=== PATIENT | male | born 1970 | race Asian ===

== ENCOUNTER → 2023-12-25 10:03 | Outpatient (REF) | payer BC, SELFPAY | LOC: DHCBC HW 10:03 | PROVIDERS: ATTENDING PHYSICIAN Internal Medicine; FAMILY PHYSICIAN Family Medicine | DX: I25.10 Atherosclerotic heart disease of native coronary artery without angina pectoris (principal); R07.89 Other chest pain; Z95.5 Presence of coronary angioplasty implant and graft | CPT/HCPCS: 93320 ==

== ENCOUNTER → 2024-12-15 08:48 | Outpatient (REF) | payer BC, SELFPAY | LOC: HWCARD 08:48 | PROVIDERS: ATTENDING PHYSICIAN Internal Medicine Hematology & Oncology; FAMILY PHYSICIAN Family Medicine | DX: C92.10 Chronic myeloid leukemia, BCR/ABL-positive, not having achieved remission (principal) | CPT/HCPCS: 93005 ==

== ENCOUNTER 2025-07-08 14:00 | Inpatient (IN) | payer BC, SELFPAY ==
[2025-07-06 19:20] VITALS: BP 126/83
[2025-07-06 19:45] LABS: Hematocrit 48.7 % (39.0-52.0); Hemoglobin 16.5 g/dL (13.0-18.0); Mean Corp Hgb Conc. 33.9 g/dL (33.0-37.0); Mean Corpuscular Volume 84.0 fL (80.0-94.0); Nucleated Red Blood Cells % 0 % (-); Platelet Count 224 10^3/uL (130-400); Red Cell Dist. Width 15.1 % (11.5-14.5)
[2025-07-06 20:09] LABS: ALT (SGPT) 20 U/L (0-50); AST (SGOT) 18 U/L (17-59); Albumin 4.6 g/dl (3.5-5.0); Alkaline Phosphatase 76 U/L (38-126); Blood Urea Nitrogen 13 mg/dl (9-20); Calcium 9.5 mg/dl (8.4-10.2); Carbon Dioxide 29 mmol/L (22-30); Chloride 101 mmol/L (98-107); Glucose 112 mg/dl (70-99); Potassium 4.5 mmol/L (3.5-5.1); Sodium 137 mmol/L (135-145); Total Protein 7.8 g/dl (6.3-8.2); eGFR > 60.00
[2025-07-06 20:19] LABS: Troponin I < 0.012 ng/ml
[2025-07-06 20:54] VITALS: BP 120/84
[2025-07-06 21:00] VITALS: BP 122/83
[2025-07-06 22:00] VITALS: BP 126/88
--- NOTE | 2025-07-06 22:50 | ED.GENMED ---
History of Present Illness
General
Chief Complaint: Chest Pain
Source: patient and spouse
Exam Limitations: none
Time Seen by Provider: 07/06/25 20:51
History of Present Illness
History of Present Illness:
Note:
CHIEF COMPLAINT(S)
Chest pain.
HISTORY OF PRESENT ILLNESS
The patient is a 54-year-old male with a history of hypertension, diabetes, previous cardiac events requiring a bypass, and leukemia. The patient presents with chest pain that started yesterday. The pain is described as a tight sensation located in
the center of the chest, and it waxes and wanes throughout the day. The discomfort increases with activities such as walking, bending, and sitting down, although the pain is not completely gone at rest. The patient reports no associated difficulty
breathing or leg swelling. He has recently been experiencing chest pain while taking a hot shower, which led his bi manager to schedule a nuclear stress test for the following Sunday. The patient denies any new symptoms since the last
consultation with the bi manager.
Additional historian
Spouse states that patient has had a long history of coronary disease
PAST MEDICAL AND SURGICAL HISTORY
Patient has a history of hypertension, diabetes, and coronary artery disease, for which he underwent a bypass surgery in 2021 or 2022. He also has a history of leukemia.
CHRONIC MEDICAL CONDITIONS SIGNIFICANTLY AFFECTING CARE
Hypertension, diabetes, coronary artery disease, leukemia.
MEDICATIONS
The patient is currently taking Aspirin 81 mg, Metoprolol tartrate 50 mg twice daily, isosorbide mononitrate, Ozempic, and Jardiance. He mentioned he was taking a statin previously, but discontinued use three months ago due to interactions with
leukemia medications. He also reported plans to start Repatha tomorrow.
REVIEW OF SYSTEMS
- Cardiovascular: Chest pain described as tightness, waxing and waning throughout the day, worse with activity.
- Respiratory: No difficulty breathing reported.
- Musculoskeletal: No leg swelling reported.
PHYSICAL EXAM
General: Alert, no acute distress.
Skin: Warm, dry.
Head: Normocephalic, atraumatic.
Neck: Supple, trachea midline.
Eyes, ears, nose, mouth and throat: Oral mucosa moist.
Cardiovascular: Normal peripheral perfusion, no edema.
Respiratory: Respirations are non-labored.
Gastrointestinal: Abdomen nondistended.
Back: Normal range of motion, normal alignment.
Musculoskeletal: Normal range of motion, normal strength.
Neurological: Alert and oriented to person, place, time, and situation, no focal neurological deficit observed.
Psychiatric: Cooperative, appropriate mood & affect.
PROBLEM LIST
Acute problems:
- Chest pain
Chronic problems:
- Hypertension
- Diabetes
- Coronary artery disease
- Leukemia
PLAN
The plan includes reviewing the patients troponin levels and consulting with cardiology regarding the next steps, given the waxing and waning nature of the chest pain and its similarity to previous events. The cardiology team may decide to admit the
patient overnight for observation and potentially expedite the stress test or proceed with a catheterization. The patient is advised to communicate if the pain worsens.
DIFFERENTIAL DIAGNOSIS
The differential diagnosis includes, in no particular order and is not limited to:
1. Angina pectoris
2. Myocardial infarction
3. Gastroesophageal reflux disease
4. Costochondritis
5. Pulmonary embolism
6. Aortic dissection
7. Pericarditis
8. Anxiety or panic attack
9. Esophageal spasm
10. Hypertensive emergency
EKG
My independent EKG interpretation is:
- Rhythm: Normal sinus rhythm
- T-Wave Abnormalities: Anterior lateral T-wave inversions
- Prominence: Lateral T-wave inversions more prominent than prior
- [place]: Normal
- Intervals: Otherwise normal
Disposition:
SUMMARY OF ENCOUNTER
The patient is a 54-year-old male with a history of coronary artery disease and prior coronary artery bypass grafting (CABG), who presented to the emergency department with intermittent chest pain. These symptoms led to a consultation with
cardiology for an upcoming stress test. On initial evaluation in the emergency department, the patient was asymptomatic and the initial troponin was negative. However, given the patients risk factors and symptom history, the case was discussed with
Dr. Betancur from cardiology. Based on the consultation, a decision was made to admit the patient for close monitoring with a repeat troponin test and further evaluation by cardiology the following day. Additional interventions such as cardiac
catheterization may be considered. The patient is instructed to remain NPO after midnight.
DISPOSITION
Admit
MANAGEMENT OF THE PATIENTS CARE WAS DISCUSSED WITH
Dr. Betancur of cardiology, regarding the patients symptomatic history and risk factors, leading to the decision to admit for close monitoring and further evaluation.
INDEPENDENT REVIEW OF LABS AND INTERPRETATION OF TESTS
My independent review of troponin is negative on initial test.
PLAN
- Admit the patient for observation and further evaluation.
- Monitor with a repeat troponin test.
- [employer] Floor [employer] Placing Supervisor evaluation in the morning, with potential for cardiac catheterization.
- Keep patient NPO after midnight.
- Consider heparin administration if repeat troponin levels increase.
MEDICAL DECISION MAKING
- Chronic conditions affecting care: Hypertension, diabetes, coronary artery disease, leukemia. Differential diagnosis includes angina pectoris, myocardial infarction, gastroesophageal reflux disease, costochondritis, pulmonary embolism, aortic
dissection, pericarditis, anxiety or panic attack, esophageal spasm, hypertensive emergency.
- Data:
Category 2
My independent interpretation of EKG: Normal sinus rhythm with anterior lateral T-wave inversions, more prominent lateral T-wave inversions than prior, suggesting ongoing cardiac ischemia risk.
Category 3
Discussion of management with Dr. Betancur, bi manager, for decision-making on admission and further cardiac evaluation.
-Risk:
The decision to admit was influenced by the patients risk factors for significant cardiac events. Admission allows for comprehensive monitoring and way intervention if his condition changes, which may include advanced diagnostic testing or
therapeutic procedures to manage potential complications effectively.
DIAGNOSIS
- Chest pain, unspecified (ICD-10: R07.9)
- Coronary artery disease (ICD-10: I25.10)
Past History
Past History
ED Past Medical History: CAD, Hypercholesterolemia and Other (Leukemia)
ED Past Surgical History: Cardiac
Patient has exhibited threatening behavior?: No
PSI?: No
Phy Exam
Physical Exam
Physical Exam:
.
Scores
Heart Score for Chest Pain Patients
STEMI patient?: No
History: Moderately Suspicious
ECG: Nonspecific Repolarization
Age: >45 - <65 years
Risk Factors: >/= 3 Risk Factors or History of CAD
Troponin: </= Normal Limit
Heart Score for Chest Pain Patients: 5
Heart Score Risk: 20.3% MACE over next 6 weeks
Course
Orders/Labs/Results
Orders:
Orders
07/06/25 19:15
Electrocardiogram (*1) Urgent
Reason for Study: Chest Pain
EKG- Treatment ONCE
07/06/25 19:27
Complete Blood Count/With Diff Urgent
Comprehensive Metabolic Panel Urgent
Troponin I Urgent
07/06/25 21:50
CR Chest - 2 Views Urgent
Comment:
Reason For Exam: cp
07/06/25 22:47
Electrocardiogram (*1) Urgent
Reason for Study: Chest Pain
EKG- Treatment ONCE
07/06/25 22:53
Troponin I Urgent
07/06/25 23:36
Aspirin Chewable [Low Strength Aspirin] 243 mg PO NOW STA
07/07/25 00:26
Admit/Transfer Patient As Directed
Co-Sign Provider:
Level of Care: Observation services
Assign to:: Telemetry
Physician / Group: Rafita
Diagnosis: Chest pain
Reason for Telemetry: Chest Pain syndromes
Date to Stop Telemetry: 07/09/25
Time to Stop Telemetry: 11:00
PRN Pain Medication Management As Directed
May give lesser potent ordered pain med per pt: Yes
preference::
Protocol:: Medication orders for pain may be administered in a
manner that supports deferring to patient preference
when the pt is:
- Requesting an ordered lesser potent pain medication.
Least to most potent pain medications are defined
as: acetaminophen < NSAID < tramadol < opioids
(morphine, oxycodone, hydromorphone).
- Requesting a lesser dose of the same medication IF
ORDERED.
- Requesting a less intrusive route of administration
if both routes are prescribed by the provider (PO <
IV).
07/07/25 00:28
Code Status As Directed
Resuscitation Status: Full Code
07/09/25 11:00
DC Protocol for Telemetry ONCE
Abnormal Lab Results
07/06/25
19:27
RDW 15.1 H %
(11.5-14.5)
MPV 10.7 H fL
(7.4-10.4)
Abs Immat Gran (auto) 0.1 H 10^3/uL
(0-0.05)
Absolute Monos (auto) 0.7 H 10^3/uL
(0.1-0.6)
Glucose 112 H mg/dl
(70-99)
07/06/25 19:27
07/06/25 19:27
Vital Signs
Initial and Last Documented VS:
Initial Vital Signs
Temp Pulse Resp BP Pulse Ox
97.5 F 90 18 126/83 98
07/06/25 19:20 07/06/25 19:20 07/06/25 19:20 07/06/25 19:20 07/06/25 19:20
Last Documented Vital Signs
Temp Pulse Resp BP Pulse Ox
97.5 F 78 15 139/92 97
07/06/25 19:20 07/06/25 23:35 07/06/25 23:35 07/06/25 23:35 07/06/25 22:50
*Pulse Oximetry
SaO2: 97
Oxygen Mode of Delivery: Room air
Patient hypoxic: no
*Critical Care Note
Total Time (30-74mins, 75-104mins- exclusive of procedures): Not Applicable
ED Attending Note
-
Portions of this chart may have been created with voice recognition software.� Occasional wrong word or��sound alike� substitutions may have occurred due to the inherent limitations of voice recognition software.
Discharge Plan
Departure
Patient Disposition: Admit
Date of Disposition: 07/06/25
Time of Disposition: 23:29
Admit to: Telemetry
Presentation/result/management discussed w/ accepting MD/DO: Hospitalist
Discharge Problem:
Chest pain
Interventions
Interventions:
*Risk Screen - Suicide Last Done: 07/06/25 19:20
*General Assessment Last Done: 07/06/25 20:51
*Neglect/Abuse Screening Last Done: 07/06/25 19:20
*ED- Fall Risk Assessment Last Done: 07/06/25 20:51
*ED COVID-19 Vaccine History Last Done: 07/06/25 20:51
*ED Influenza Vaccine History Last Done: 07/06/25 20:51
ED- Cardiac Assessment Last Done: 07/06/25 23:25
[2025-07-06 23:33] LABS: Troponin I < 0.012 ng/ml
[2025-07-06 23:35] VITALS: BP 139/92
[2025-07-06] MEDS: LOW STRENGTH ASPIRIN 243 MG PO (23:50)
[2025-07-07] VITALS (17 sets, daily range): BP systolic 92–133; BP diastolic 70–91; BMI 30.1
--- NOTE | 2025-07-07 00:31 | HPS.HSE ---
Family Physician
-
Family Physician: Ever Mcclure
Chief Complaint
-
Chest Pain
History of Present Illness
Patient is a 54y with PMH significant for ASCVD, CML and DM-II who presents to ED complaining of chest pain. Patient states that he started with substernal chest pain yesterday AM. He notes that his pain was relatively mild and intermittent.
This AM his pain was more severe and was constant throughout the day. Patient noted associated headache and some R jaw discomfort with the pain. No associated SOB, diaphoresis, N/V. Patient notes that his symptoms are worse with any exertion /
activity and then improve with rest. He states that these symptoms are similar to his symptoms in 2020 prior to his CABG / stents.
At the time of my examination, patient states that his symptoms are much improved at rest. He reports minimal residual chest discomfort.
Patient notes that he stopped taking his statin about 3 months ago. He was having increased myalgias due to interaction between statin and his new CML medication (Scemblix).
Medical History
Past Medical History
Past Medical History: Reports Other
Additional Past Medical History:
ASCVD
CML
DM-II
Past Surgical History: Reports Other
Additional Past Surgical History:
CABG x 1 (SMITH - LAD) - 08/2022
PTCA with Stent x 2 (Cx / RPDA) - 09/2022
Vasectomy
Social History
Tobacco: Non-smoker
Alcohol: None
Drug: None
Family History
Family History: Not pertinent
Allergies / Home Medications
Allergies reflects when Allergies were last updated in [facility].
Home Medications with original date entered in [facility]
Allergy/Medication List:
Allergies
Allergy/AdvReac Type Severity Reaction Status Date / Time
No Known Allergies Allergy Verified 07/06/25 19:20
Home Medications
aspirin 81 mg chewable tablet 81 mg PO DAILY Blood clot prevention/tx 08/04/22
nitroglycerin 0.4 mg sublingual tablet 0.4 mg sublingual [id number] PRN chest pain #25 tabs 08/04/22
acetaminophen 325 mg tablet 650 mg (2 x 325 mg) PO Q6HPRN PRN mild pain,headache,temp >101F #0 tabs 08/24/22
metoprolol tartrate 50 mg tablet 50 mg PO BID #60 tabs 08/24/22
Scemblix 2 tab PO HS 07/06/25
empagliflozin 10 mg tablet (Jardiance) 10 mg PO DAILY 07/06/25
evolocumab 140 mg/mL subcutaneous syringe (Repatha Syringe) 140 mg SC Q2W 07/06/25
isosorbide mononitrate 30 mg tablet,extended release 24 hr 30 mg PO DAILY 07/06/25
metformin 500 mg tablet,extended release 24 hr 500 mg PO DAILY 07/06/25
semaglutide 1 mg/dose (2 mg/1.5 mL) subcutaneous pen injector 1 mg SC QWEEK 07/06/25
Review of Systems
-
History Source: Patient
A 12 point ROS was completed and negative except as noted: Yes
Constitutional: Denies Fever or Chills
Respiratory: Reports Trouble Breathing; Denies Cough
Cardiac: Reports Chest Pain; Denies Diaphoresis, Palpitations or Syncope
Abdomen/GI: Denies Abdominal Pain, Nausea, Vomiting or Diarrhea
: Denies Dysuria or Frequency
Musculoskeletal: Denies Joint Pain or Edema
Neurological: Reports Headache; Denies Dizzy
Psych: Denies Depression or Anxiety
Physical Exam
Vital Signs
Vital Signs
Temp Pulse Resp BP Pulse Ox
97.5 F 78 15 139/92 97
07/06/25 19:20 07/06/25 23:35 07/06/25 23:35 07/06/25 23:35 07/06/25 22:50
Physical Exam
General: Other (54y M in no acute distress.)
HEENT: Moist mucous membranes and PERRLA
Respiratory: Clear; No Wheezes, Rales or Rhonchi
Cardiac: S1/S2 and Regular Rhythm; No Murmur
GI: Soft, Non Tender, Non Distended and Normal Bowel Sounds
Musculoskeletal: No Clubbing, No Cyanosis and No Edema
Neuro: AO x 3
Laboratory Results
-
07/06/25 19:27
07/06/25 19:
Laboratory Results
Total Bilirubin 1.1 mg/dl (0.2-1.3) 07/06/25 19:
AST 18 U/L (17-59) 07/06/25 19:
ALT 20 U/L (0-50) 07/06/25 19:27
Alkaline Phosphatase 76 U/L (38-126) 07/06/25 19:
Troponin I < 0.012 ng/ml 07/06/25 22:53
Impression/Plan
-
A/P: Patient is a 54y M with PMH significant for ASCVD who presents to ED complaining of chest pain x 2 days.
Chest Pain
ASCVD
- Observe overnight for further evaluation and treatment.
- Good story for anginal pain. EKG with new T wav changes V2 - V6 compared to prior tracing.
- Despite this, troponin has been undetectable x 2 sets thus far.
- Continue current CV med regimen including ASA, metoprolol, etc.
- Follow for any new / worsening symptoms.
- Follow serial troponin for changes.
- Cardiology evaluation for additional recommendations.
DM-II
- Induced by CML medication per patient.
- Hold metformin acutely. Continue Jardiance.
- Follow glucose and cover with SSI as needed.
- Update A1C.
CML
- Stable. Cell counts are stable.
- Hold asciminib acutely (associated with cardiotoxicity).
DVT Prophylaxis: Lovenox
Code Status: Full
--- NOTE | 2025-07-07 02:30 | PTCARENOTE ---
Pt arrived to unit via stretcher. A&Ox3. Ambulated from stretcher to bed. Oriented to unit. Plan of care ongoing.
[2025-07-07 03:53] LABS: Troponin I < 0.012 ng/ml
[2025-07-07 06:02] LABS: Glucose - Point of Care 99 mg/dl (70-99)
--- NOTE | 2025-07-07 07:39 | CON.CAR ---
Addendum entered and electronically signed by Silvio Betancur MD 07/07/25 14:01:
I saw and evaluated the patient, and I provided the substantive portion of the medical decision making.
I reviewed and agree with the note by Ms Frost and it accurately reflects our care.
I personally performed the medical decision making of the this encounter and my assessment and plan is below:
Symptoms concerning for accelerating angina
- [facility] today
Original Note:
Consultation
Consultation Request
Date/Time Consultation Requested: 07/07/2025 01:00
Date/Time Consultation Performed: 07/07/2025 07:40
Requesting Provider: Dr. Eller
Performing Provider: JENNIE Garcia for Dr. Betancur
Reason for Consultation: Chest pain
Medical History
-
Chief Complaint: Chest pain
History of Present Illness:
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 He has been having waxing
and waning chest pain for the past 48 hours. He has both typical and atypical features. Typical features include worsening chest pressure that is midsternal and anterior that gets worse with exertion. Atypical feature includes worsening chest
pressure bending down. His chest pain is very brief and will last a few minutes and spontaneously resolved. He will also have some discomfort at rest. No episodes >5 minutes. He is currently chest pain-free.
Past Medical History
Past Medical History: CAD, Cancer (CML), HTN, Hypercholesterolemia and NIDDM
Past Surgical History: Cardiac (CABG)
Social History
Tobacco: Non-Smoker
Alcohol: None
Personal:
Family History
Family History: Reviewed & Not Pertinent
Allergies / Home Medications
Allergy/AdvReac Type Severity Reaction Status Date / Time
No Known Allergies Allergy Verified 07/06/25 19:20
�Medication �Instructions �Recorded �Confirmed �Type
aspirin 81 mg chewable tablet 81 mg PO DAILY Blood clot 08/04/22 07/06/25 History
prevention/tx
nitroglycerin 0.4 mg sublingual 0.4 mg sublingual [id number] PRN 08/04/22 07/06/25 Rx
tablet chest pain #25 tabs
acetaminophen 325 mg tablet 650 mg (2 x 325 mg) PO Q6HPRN PRN 08/24/22 07/06/25 Rx
mild pain,headache,temp >101F #0
tabs
metoprolol tartrate 50 mg tablet 50 mg PO BID #60 tabs 08/24/22 07/06/25 Rx
Scemblix 2 tab PO HS 07/06/25 07/06/25 History
empagliflozin 10 mg tablet 10 mg PO DAILY 07/06/25 07/06/25 History
(Jardiance)
evolocumab 140 mg/mL subcutaneous 140 mg SC Q2W 07/06/25 07/06/25 History
syringe (Repatha Syringe)
isosorbide mononitrate 30 mg 30 mg PO DAILY 07/06/25 07/06/25 History
tablet,extended release 24 hr
metformin 500 mg tablet,extended 500 mg PO DAILY 07/06/25 07/06/25 History
release 24 hr
semaglutide 1 mg/dose (2 mg/1.5 1 mg SC QWEEK 07/06/25 07/06/25 History
mL) subcutaneous pen injector
Review of Systems
-
Constitutional: No Symptoms
EENT: No Symptoms
Respiratory: No Symptoms
Cardiac: No Symptoms
Abdomen/GI: No Symptoms
: No Symptoms
Musculoskeletal: No Symptoms
Skin: No Symptoms
Neurological: No Symptoms
Endocrine: No Symptoms
Hematologic/Lymphatic: No Symptoms
Physical Exam
Vital Signs
Temp Pulse Resp BP Pulse Ox
97.1 F 70 18 133/88 99
07/07/25 02:46 07/07/25 02:46 07/07/25 02:46 07/07/25 02:46 07/07/25 02:46
Lab Results
Troponin I < 0.012 ng/ml 07/07/25 03:07
Physical Exam
General: Well Developed, Well Nourished, No Apparent Distress and Comfortable
HEENT: Other (Mask covering mouth and nose)
Respiratory: Clear and Non Labored Respirations
Cardiac: S1/S2, Regular Rhythm and Peripheral Edema (Trace ankle edema)
Breast: Deferred by me
GI: Soft, Non Tender, Non Distended and Normal Bowel Sounds
Rectal: Deferred by Provider
Genito-urinary: No Costovertebral Tender
Musculoskeletal: No Clubbing and No Cyanosis
Skin: Warm and Dry
Neuro: AO x 3
Hematologic/Lymphatic: No Lymphadenopathy
Psych: Calm
Impression / Plan
-
I/P: 54M with CAD (MID CABG x1 08/2022, PCI mCx & pRPDA 09/2022), HTN, HLD with statin intolerance, T2DM, chronic phase CML presents with chest pain.
Primary paper finisher: Dr. Deleon
Chest pain
- EKG with anterolateral TWI, new
- Troponin < 0.012 x 3
- Echocardiogram today
- Coronary angiography today
CAD
- Robotic MID CAB (single-vessel bypass in situ SMITH-LAD) with Dr. Bosch on 08/22/2022
- PCI mCx & pRPDA 09/29/2022
- Continue ASA 81mg, metoprolol tartrate, & isosorbide mononitrate
HLD
- Continue Repatha
- Fasting lipid panel pending
Statin intolerance, on PCSK9i
Type 2 diabetes mellitus, with hyperglycemia, Hgba1c pending
CML, on �asciminib (Scemblix, TKI--BCR/ABL), managed by Dr. Luna
SUBJECTIVE:
As above.
Data Reviewed
-
EKG: Report Reviewed by me
Medical Tests (Nuc Med, Echo etc): Report Reviewed by me
Labs: Labs Reviewed by me
Old Records: Reviewed
[2025-07-07] MEDS: IMDUR (EXTENDED RELEASE) 30 MG PO (08:12)
[2025-07-07] MEDS: LOPRESSOR 50 MG PO ×2 (08:12→19:42)
[2025-07-07] MEDS: LOW STRENGTH ASPIRIN 81 MG PO (08:12)
[2025-07-07] MEDS: FARXIGA 10 MG PO (08:12)
[2025-07-07 09:48] LABS: Hematocrit 45.8 % (39.0-52.0); Hemoglobin 15.5 g/dL (13.0-18.0); Mean Corp Hgb Conc. 33.8 g/dL (33.0-37.0); Mean Corpuscular Volume 83.9 fL (80.0-94.0); Platelet Count 198 10^3/uL (130-400); Red Cell Dist. Width 14.8 % (11.5-14.5)
[2025-07-07 10:22] LABS: Blood Urea Nitrogen 11 mg/dl (9-20); Calcium 9.4 mg/dl (8.4-10.2); Carbon Dioxide 25 mmol/L (22-30); Chloride 103 mmol/L (98-107); Estimated Creatinine Clearance > 125 ml/min; Glucose 94 mg/dl (70-99); HDL Cholesterol 47 mg/dl; LDL Cholesterol, Calculated 140 mg/dl; Potassium 4.3 mmol/L (3.5-5.1); Sodium 136 mmol/L (135-145); Very Low Density Lipoprotein 31 mg/dl (0-30); eGFR > 60.00
[2025-07-07 11:32] LABS: Glycohemoglobin (HgbA1c) 5.5 % (4.0-5.9)
[2025-07-07 12:31] LABS: Glucose - Point of Care 77 mg/dl (70-99)
--- NOTE | 2025-07-07 15:45 | W.PN.HOSP.TC ---
Today's Communication/Plan
-
Assessment / Plan
Assessment / Plan
NAD
Scleral Anicteric
MMM
No JVD
CTABL
RRR, S1/S2
Soft, NT, ND, BS+
Warm, Dry
AAOx3
Calm
presenting with what sounds like stable angina with three negative trops, ekg similar to EKG from (2022 (time of PCI) with TWI inversions in leads v1-v6, and Lead 1. EKGs after stenting normal without TWI uptill last night's EKG. Has known hx
of cad s/p cabg (2021) and MVPCI (2022) which sounds staged by Xavi Nichole. Hx of DM and CML. On Asa, nitrate/BB and prn ntg sl along with PCSK9i. Off of statin due to myalgias, on PCSK9i. With his known hx and stable angina suspect he will need
LHC and 2d echo. Will place the 2d echo now and keep him NPO
cml
on scemblix
htn
continue antihypertensive
hld
off statin for myalgias
on pcsk9i
dm2 - ni
accucehcsk
bg foal 140-180
ccdiet when able for diet
hold metformin
ssi
Anticipated Discharge: 24 - 48 hours
Subjective/Interval History
-
Date of Service: July 07, 2025
Examined. No new complaints. No acute overnight events.
No further chest discomfort noted
Objective Data
-
Labs:
Laboratory Results
07/07/25
09:15
WBC 8.0
Hgb 15.5
Hct 45.8
Plt Count 198
Sodium 136
Potassium 4.3
Chloride 103
Carbon Dioxide 25
BUN 11
Creatinine 0.7
Glucose 94
Calcium 9.4
Vital Signs:
Vital Signs
Temp Pulse Resp BP Pulse Ox
97.9 F 66 16 114/78 100
07/07/25 11:45 07/07/25 11:45 07/07/25 11:45 07/07/25 11:45 07/07/25 14:46
--- NOTE | 2025-07-07 18:10 | PTCARENOTE ---
Received pt S/P cath with stent. VSS, monitor showing NSR. Left wrist radial band intact, fingers cool & slightly dusky, + radial pulse, good pleth on pulse ox monitor = 100%. Denies pain at present. Instructed on activity restrictions, call rincon
in reach.
--- NOTE | 2025-07-07 18:21 | ITS.CL.PN ---
Loop Machine Operator - Procedure Note
Procedure
Procedure Note:
CARDIAC CATHETERIZATION REPORT
Date of Procedure: 07/07/2025
Referring: Dr. Silvio Betancur MD
Indication: accelerating angina
PROCEDURE(S)
1. left heart catheterization
2. coronary angiography
3. bypass graft angiography
4. IVUS LAD
5. PCI with DAVID to LAD
ACCESS: 6F left radial artery (closure: radial band)
CATHETERS
1. 6F JOSE
2. 6F JR4
3. 6F JL4
4. 6F EBU3.75
MODERATE SEDATION: 45 minutes of moderate sedation was utilized. An independent medical associate was present to assist with and help manage the patient's level of consciousness and physiologic status.
HEMODYNAMIC DATA
LV 98/7 (EDP 16) mmHg
AO 100/70 (mean 82) mmHg
CORONARY ANGIOGRAPHY
Dominance: Right
LM: Cloacal
LAD: Large vessel giving rise to a small D1 and moderate caliber D2. There is a long segment of up to 70% stenosis in the proximal LAD spanning the takeoff of D1. There is a severe focal 80% stenosis in the mid LAD just distal to the D2 takeoff that
is new compared to 2022 angiography.
LCx: Large vessel giving rise to a moderate caliber OM1, large OM2, small OM3, moderate caliber LPL1, and small LPL2. There is a widely patent stent in the mid circumflex after the takeoff of the OM2 and otherwise mild disease that is
angiographically unchanged from 2022.
RCA: Moderate caliber vessel giving rise to a moderate caliber marginal branch and moderate caliber RPDA. There is 50% ostial stenosis of the marginal branch mildly progressed from 202 angiography. The stent in the distal RPDA is widely patent.
BYPASS GRAFT ANGIOGRAPHY:
SMITH-LAD: the SMITH is taken as a pedicle and forms an anastomosis with the mid-LAD. There is mild narrowing at the anastomotic site unchanged from 2022 angiography. There is brisk flow to the apical LAD.
Compared to prior angiography at the time of PCI to RCA and LCx, there was finding of new severe stenosis in the mid LAD compromising previous retrograde filling of the moderate caliber D2 from the SMITH. The D2 was now dependent on negative inflow
via the severe proximal disease that was the reason for the initial bypass grafting. Thus, the decision was made to proceed with PCI of the inflow disease to restore flow to the D2. Stenting of the lesion in the mid LAD to restore retrograde flow to
the D2 from the SMITH was felt to be less desirable given that the stenosis was very near to the touchdown of the SMITH.
PCI with DAVID to LAD
The LAD was engaged with a EBU 3.75 guide catheter and heparin given to achieve ACT greater than 300. A Runthrough wire was placed in the D2 and initial lesion preparation performed with a 2.0 mm semicompliant balloon followed by IVUS demonstrating
heavy plaque burden with a 3.0 mm distal reference vessel diameter and 3.5 mm proximal reference vessel diameter at sites of relatively minimal plaque burden. Stenting was performed with a 3.0 x 34 mm [place] drug-eluting stent postdilated to
high-pressure distally with 3.0 mm NC balloon and proximally to high-pressure with a 3.5 mm NC balloon. The patient was noted to have chest pain with each balloon inflation, confirming dependence on the [place] inflow to supply the D2. Final IVUS
demonstrated full stent expansion and apposition without edge dissection. Final angiographic result was excellent. There was noted to be mild narrowing of the ostial LAD at the proximal stent edge which did not improve with nitroglycerin
administration. This was noted to be present prior to stenting represents an area of moderate ostial plaque. There was noted to be DANG II flow in the jailed small D1 branch, a 1 mm vessel, however, the patient was chest pain-free and given this and
the vessel caliber no further intervention was performed. The wire and guide were removed and a TR band placed. The patient was loaded with 600 mg of Plavix.
RADIATION: dose 494 mGy; DAP 33.1 Gy*cm2; fluoroscopy time 12.7 min
CONCLUSIONS
1. Mildly elevated LV filling pressure and no aortic stenosis
1. Coronary artery disease as described with patent SMITH to LAD, patent DAVID to LCx, and patent DAVID to RPDA, but new stenosis in the mid LAD compromising retrograde filling of the moderate caliber D2.
2. Successful IVUS guided PCI with DAVID to proximal LAD (3.0 x 34 mm [place] drug-eluting stent postdilated to 3.0 mm distally and 3.5 mm proximally) restoring [place] inflow to the D2.
RECOMMENDATIONS
1. Aggressive secondary prevention of coronary artery disease. Goal LDL as low as reasonably achievable.
2. Continue DAPT with aspirin and Plavix for 1 year.
Copy to: Dr. Andre Deleon MD, PhD (electric relay tester); Dr. Ever Mcclure MD (PCP)
Signed: Enrique Martin MD, PhD
[2025-07-07 18:32] LABS: Glucose - Point of Care 65 mg/dl (70-99)
[2025-07-07 18:48] LABS: Glucose - Point of Care 56 mg/dl (70-99)
[2025-07-07 19:11] LABS: Glucose - Point of Care 114 mg/dl (70-99)
--- NOTE | 2025-07-07 19:54 | PTCARENOTE ---
assumed care of patient at the change of shift. AAOx3. denies any cp/sob. SR on tele 80s. bp stable. L radial band intact. + pulse. at the bedside. answered all questions.
low blood glucose. patient has been NPO all day. asymptomatic. improved BG after orange juice and brought patient in food. BG 114. will recheck in 2 hours. see documentation.
[2025-07-07 21:19] LABS: Glucose - Point of Care 127 mg/dl (70-99)
--- NOTE | 2025-07-07 23:06 | PTCARENOTE ---
Pt reports a continuos pain coming from left radial site. no swelling or firmness noted; great pulse. tylenol given for discomfort.
[2025-07-07] MEDS: TYLENOL 650 MG PO (23:07)
[2025-07-07 23:34] LABS: Glucose - Point of Care 95 mg/dl (70-99)
--- NOTE | 2025-07-07 23:41 | PTCARENOTE ---
Pt reports pain at left radial site is improving and is more intermittent than continuos at this time.
[2025-07-08 03:04] VITALS: BP 121/80
[2025-07-08 03:12] LABS: Glucose - Point of Care 117 mg/dl (70-99)
[2025-07-08 03:24] VITALS: BMI 30.1
--- NOTE | 2025-07-08 03:27 | PTCARENOTE ---
Pt reports no discomfort from left radial site. am labs and ecg completed including 0300 accu check ; results 117.
[2025-07-08 03:34] LABS: Hematocrit 45.1 % (39.0-52.0); Hemoglobin 14.9 g/dL (13.0-18.0); Mean Corp Hgb Conc. 33.0 g/dL (33.0-37.0); Mean Corpuscular Volume 85.1 fL (80.0-94.0); Nucleated Red Blood Cells % 0 % (-); Platelet Count 193 10^3/uL (130-400); Red Cell Dist. Width 14.9 % (11.5-14.5)
[2025-07-08 03:56] LABS: Blood Urea Nitrogen 12 mg/dl (9-20); Calcium 9.3 mg/dl (8.4-10.2); Carbon Dioxide 25 mmol/L (22-30); Chloride 106 mmol/L (98-107); Estimated Creatinine Clearance > 125 ml/min; Glucose 122 mg/dl (70-99); Potassium 4.2 mmol/L (3.5-5.1); Sodium 135 mmol/L (135-145); eGFR > 60.00
[2025-07-08 07:33] VITALS: BP 119/80
[2025-07-08 08:06] LABS: Glucose - Point of Care 122 mg/dl (70-99)
[2025-07-08] MEDS: LOPRESSOR 50 MG PO (08:23)
[2025-07-08] MEDS: PLAVIX 75 MG PO (08:23)
[2025-07-08] MEDS: IMDUR (EXTENDED RELEASE) 30 MG PO (08:23)
[2025-07-08] MEDS: LOW STRENGTH ASPIRIN 81 MG PO (08:24)
[2025-07-08] MEDS: FARXIGA 10 MG PO (08:24)
--- NOTE | 2025-07-08 08:49 | PTCARENOTE ---
Pt received this am oob ad papa, with no c/o of chest pain or sob. Left radial cath site dressing dry and intact with no c/o of any further discomfort at the site. Room air sat 98.
--- NOTE | 2025-07-08 11:00 | W.PN.CD ---
Today's Communication / Plan
-
discharge planning on ASA/Plavix
we will arrange for outpatient follow up
Impression / Plan
-
I/P: 54M with CAD (MID CABG x1 08/2022, PCI mCx & pRPDA 09/2022), HTN, HLD with statin intolerance, T2DM, chronic phase CML presents with chest pain.
Primary crm technical lead: Dr. Deleon
ACS/unstable angina
-echo 07/07: EF 55-60%, no sig valve disease
-s/p DAVID to prox LAD 07/07
-ASA/Plavix
CAD
- Robotic MID CAB (single-vessel bypass in situ SMITH-LAD) with Dr. Bosch on 08/22/2022
- PCI mCx & pRPDA 09/29/2022
- Continue ASA 81mg, metoprolol tartrate, & isosorbide mononitrate
HLD
- plans to start repatha as outpatient this week
Statin intolerance, on PCSK9i
Type 2 diabetes mellitus, with hyperglycemia, Hgba1c pending
CML, on �asciminib (Scemblix, TKI--BCR/ABL), managed by Dr. Luna
Physical Exam
Vital Signs/Labs
Vital Signs
Temp Pulse Resp BP Pulse Ox
98.5 F 73 16 121/80 98
07/08/25 07:34 07/08/25 03:15 07/08/25 07:34 07/08/25 03:04 07/08/25 07:34
07/07/25 07/08/25 07/09/25
06:59 06:59 06:59
Actual Weight 100.726 kg 100.7 kg
07/08/25 03:10
07/08/25 03:10
Triglycerides 158 mg/dl (10-149) H 07/07/25 09:15
LDL Cholesterol, Calc 140 mg/dl 07/07/25 09:15
VLDL Cholesterol, Calc 31 mg/dl (0-30) H 07/07/25 09:15
HDL Cholesterol 47 mg/dl 07/07/25 09:15
LAB Results
07/06/25 07/06/25 07/07/25
19:27 22:53 03:07
Troponin I < 0.012 < 0.012 < 0.012
07/07/25 07/07/25
08:33 14:33
Troponin I Cancelled Cancelled
Physical Exam
Constitutional: No acute distress and Comfortable
EENT: Moist mucous membranes
Cardiovascular: Rhythm & rate is regular, Pedal edema is absent, JVD pressure is normal and Systolic murmur absent
Respiratory: Respiratory effort normal, Lungs clear to auscul. and Wheeze Absent
Neuro/Psych: AO x 3
Data Reviewed
-
Date of Service: July 08, 2025
EKG: Other (Tele: SR, brief SVT)
Echo: Report Reviewed by me
Labs: Labs Reviewed by me
[2025-07-08 11:56] VITALS: BP 118/88
--- NOTE | 2025-07-08 12:13 | CM ---
Chart reviewed. Patient is independent of ADLS, lives with his in a [address], 1 [address]EN[address], 0 DME. Plan is for the patient to return home. CM to follow
[2025-07-08 12:58] LABS: Glucose - Point of Care 104 mg/dl (70-99)
--- NOTE | 2025-07-08 13:24 | W.DCSUMMARY ---
Discharge Summary
Discharge Data
Date of Admission: 07/07/25
Date of Discharge: 07/08/25
-
Pending Results: No
Hospital Course
54 M hx of Cad, DM2, Htn and CML with hx of statin induced myalgias
Presented with findings of accelerated angina. Negative troponins. However noted to have similar EKG changes from previous coronary interventions were required. Therefore cardiology consulted. Plan for left heart catheterization found to have
areas of stenosis and proximal LAD was stented. Was reloaded with Plavix. Cleared for discharge home by cardiology with continued outpatient follow-up
2d echo
SUMMARY
1. Normal biventricular size and function without wall motion abnormalities.
2. LVEF is 58% by Hawkins's biplane method of discs.
3. No significant valvular disease.
4. Compared to prior from September 22, 2022, no significant change.
LHC
CONCLUSIONS
1. Mildly elevated LV filling pressure and no aortic stenosis
1. Coronary artery disease as described with patent SMITH to LAD, patent DAVID to LCx, and patent DAVID to RPDA, but new stenosis in the mid LAD compromising retrograde filling of the moderate caliber D2.
2. Successful IVUS guided PCI with DAVID to proximal LAD (3.0 x 34 mm [place] drug-eluting stent postdilated to 3.0 mm distally and 3.5 mm proximally) restoring [place] inflow to the D2.
RECOMMENDATIONS
1. Aggressive secondary prevention of coronary artery disease. Goal LDL as low as reasonably achievable.
2. Continue DAPT with aspirin and Plavix for 1 year.
Seen and examined on day of discharge. No new complaints. No acute overnight events.
Feeling significantly better post cath
Ready to go home
NAD
Scleral Anicteric
MMM
No JVD
CTABL
RRR, S1/S2
Soft, NT, ND, BS+
Warm, Dry
AAOx3
Calm
Discharge Plan
-
Patient Disposition: Home (Routine Discharge)
Discharge Diagnosis/Procedures: CAD
Condition: Good
Diet: As tolerated, Regular, Low Fat, Low Cholesterol, Low Sodium and No added salt
Activity: As tolerated
Other Services: Cardiac Rehab
Activity Restrictions/Additional Instructions:
Presented with findings of accelerated angina. Negative troponins. However noted to have similar EKG changes from previous coronary interventions were required. Therefore cardiology consulted. Plan for left heart catheterization found to have
areas of stenosis and proximal LAD was stented. Was reloaded with Plavix. Cleared for discharge home by cardiology with continued outpatient follow-up
2d echo
SUMMARY
1. Normal biventricular size and function without wall motion abnormalities.
2. LVEF is 58% by Hawkins's biplane method of discs.
3. No significant valvular disease.
4. Compared to prior from September 22, 2022, no significant change.
LHC
CONCLUSIONS
1. Mildly elevated LV filling pressure and no aortic stenosis
1. Coronary artery disease as described with patent SMITH to LAD, patent DAVID to LCx, and patent DAVID to RPDA, but new stenosis in the mid LAD compromising retrograde filling of the moderate caliber D2.
2. Successful IVUS guided PCI with DAVID to proximal LAD (3.0 x 34 mm [place] drug-eluting stent postdilated to 3.0 mm distally and 3.5 mm proximally) restoring [place] inflow to the D2.
RECOMMENDATIONS
1. Aggressive secondary prevention of coronary artery disease. Goal LDL as low as reasonably achievable.
2. Continue DAPT with aspirin and Plavix for 1 year.
Referrals:
Madison Gonzales CRNP [Specified Professional Personl, Cardiology] - 08/05/25 10:00 am
Ever Mcclure MD [Family Provider, Family Practice]
Prescriptions:
New
clopidogrel 75 mg Tablet
75 mg PO DAILY Qty: 30 0RF
Continued
nitroglycerin 0.4 mg tablet, sublingual
0.4 mg sublingual [id number] PRN (Reason: chest pain) Qty: 25 2RF
acetaminophen 325 mg Tablet
650 mg PO Q6HPRN PRN (Reason: mild pain,headache,temp >101F ) Qty: 0 0RF
metoprolol tartrate 50 mg Tablet
50 mg PO BID Qty: 60 1RF
isosorbide mononitrate 30 mg Tablet Extended Release 24 Hr
30 mg PO DAILY
metformin 500 mg Tablet Extended Release 24 Hr
500 mg PO DAILY
Jardiance 10 mg Tablet
10 mg PO DAILY
Repatha Syringe 140 mg/mL Syringe
140 mg SC Q2W
semaglutide 1 mg/dose (2 mg/1.5 mL) Pen Injector
1 mg SC QWEEK
Scemblix
2 tab PO HS
aspirin 81 mg Tablet,Chewable
81 mg PO DAILY Qty: 30 0RF
Discharge Orders:
Discharge Patient (As Directed); Ordered 07/08/25
Ordered By: Will Presley
Care Plan Goals
Care Plan Goals:
Problem: Readiness for enhanced knowledge related to diagnosis and treatment plan
Goal: Understand your diagnosis and treatment plan needs, including medications if applicable.
Instructions: Know your diagnosis, underlying causes and treatment plan options, including medications if applicable. Consult with your health care team to learn about your diagnosis and treatment plan, including medications if applicable.
Discharge Date and Time
Print Language: TURKMEN
--- NOTE | 2025-07-08 14:31 | PTCARENOTE ---
Pt discharged to home with his . Discharge instructions given and reviewed with good understanding. Pt stated he had no questions regarding discharge.
== END 2025-07-08 14:10 | disposition home or self-care (01) | DRG 322 ==
LOC: IVU 14:00
PROVIDERS: Emergency Medicine; Internal Medicine; Nurse Practitioner Family; Student in an Organized Health Care Education/Training Program; ADMITTING PHYSICIAN Hospitalist; ATTENDING PHYSICIAN Hospitalist; CONSULT PHYSICIAN Internal Medicine Cardiovascular Disease; EMERGENCY PHYSICIAN Emergency Medicine; FAMILY PHYSICIAN Family Medicine
PROC: B2111ZZ Fluoroscopy of Multiple Coronary Arteries using Low Osmolar Contrast (ICD-10-PCS; 2025-07-07)
PROC: B2121ZZ Fluoroscopy of Single Coronary Artery Bypass Graft using Low Osmolar Contrast (ICD-10-PCS; 2025-07-07)
PROC: 4A023N7 Measurement of Cardiac Sampling and Pressure, Left Heart, Percutaneous Approach (ICD-10-PCS; 2025-07-07)
PROC: 027034Z Dilation of Coronary Artery, One Artery with Drug-eluting Intraluminal Device, Percutaneous Approach (ICD-10-PCS; 2025-07-07)
PROC: B2181ZZ Fluoroscopy of Left Internal Mammary Bypass Graft using Low Osmolar Contrast (ICD-10-PCS; 2025-07-07)
DX: I25.110 Atherosclerotic heart disease of native coronary artery with unstable angina pectoris (principal); C92.10 Chronic myeloid leukemia, BCR/ABL-positive, not having achieved remission; I10 Essential (primary) hypertension; E11.9 Type 2 diabetes mellitus without complications; Z95.1 Presence of aortocoronary bypass graft; Z91.128 Patient's intentional underdosing of medication regimen for other reason; Z79.899 Other long term (current) drug therapy; Z79.82 Long term (current) use of aspirin; Z79.84 Long term (current) use of oral hypoglycemic drugs; Z79.85 Long-term (current) use of injectable non-insulin antidiabetic drugs; E78.00 Pure hypercholesterolemia, unspecified
CPT/HCPCS: 71046; 80048; 80053; 80061; 82962; 83036; 84484; 85025; 85027; 85347; 92978; 93005; 93306; 93459; 99152; 99153; 99285; C1725; C1753; C1769; C1874; C1894; C9600; Q9967

== ENCOUNTER 2025-09-01 17:30 | Outpatient (RCR) | payer BC, SELFPAY ==
[2025-08-11 13:36] LABS: Glucose - Point of Care 93 mg/dl (70-99)
[2025-08-11 14:17] LABS: Glucose - Point of Care 81 mg/dl (70-99)
[2025-08-12 17:34] LABS: Glucose - Point of Care 93 mg/dl (70-99)
[2025-08-12 18:29] LABS: Glucose - Point of Care 96 mg/dl (70-99)
[2025-08-14 17:45] LABS: Glucose - Point of Care 113 mg/dl (70-99)
[2025-08-14 18:43] LABS: Glucose - Point of Care 91 mg/dl (70-99)
[2025-08-17 17:36] LABS: Glucose - Point of Care 125 mg/dl (70-99)
[2025-08-17 18:29] LABS: Glucose - Point of Care 78 mg/dl (70-99)
[2025-08-17 18:44] LABS: Glucose - Point of Care 83 mg/dl (70-99)
[2025-08-19 17:29] LABS: Glucose - Point of Care 122 mg/dl (70-99)
[2025-08-19 18:20] LABS: Glucose - Point of Care 93 mg/dl (70-99)
[2025-08-21 17:28] LABS: Glucose - Point of Care 97 mg/dl (70-99)
[2025-08-21 18:20] LABS: Glucose - Point of Care 86 mg/dl (70-99)
[2025-08-24 17:35] LABS: Glucose - Point of Care 96 mg/dl (70-99)
[2025-08-24 18:18] LABS: Glucose - Point of Care 80 mg/dl (70-99)
[2025-08-31 17:24] LABS: Glucose - Point of Care 123 mg/dl (70-99)
[2025-08-31 18:14] LABS: Glucose - Point of Care 99 mg/dl (70-99)
[2025-09-01 17:25] LABS: Glucose - Point of Care 107 mg/dl (70-99)
[2025-09-01 18:17] LABS: Glucose - Point of Care 114 mg/dl (70-99)
== END 2025-09-01 23:59 | disposition home or self-care (01) ==
LOC: CRHB 17:30
PROVIDERS: ATTENDING PHYSICIAN Internal Medicine; FAMILY PHYSICIAN Family Medicine
DX: I25.10 Atherosclerotic heart disease of native coronary artery without angina pectoris (principal); Z95.5 Presence of coronary angioplasty implant and graft
CPT/HCPCS: 82962; 93798; G0422